=== PATIENT | male | born 1990 | race African-American/Black ===

== ENCOUNTER 2017-08-07 22:04 | Emergency (ER) | payer SELFPAY ==
[2017-08-07 22:25] VITALS: BP 163/86; PULSE 89; TEMP 99.9; BMI 27.6
--- NOTE | 2017-08-07 22:41 | PDOC ---
History of Present Illness - General History Source: Patient Exam Limitations: No Limitations - History of Present Illness Initial Comments: 08/07/17 23:09 The patient is a 26 year old female with no significant PMH who presents to the emergency department with flu-like symptoms including vomiting, fever (T. max 99F), and diarrhea beginning approximately this morning. The patient reports about 4 episodes of diarrhea and 2 episodes of vomiting with bloody streaks since this morning. He notes associated diffuse abdominal pain and body aches with his vomiting and diarrhea. The patient also notes he had a cough last week but denies cough at presentation. The patient denies chest pain, shortness of breath, headache and dizziness. Denies dysuria, frequency, urgency and hematuria. Allergies: NKA Past surgical history: None reported. Social history: Marijuana use. No reported cigarette or alcohol use. PCP: None reported. <Broderick Mensah - Last Filed: 08/07/17 23:09> <Estrella Nesbitt - Last Filed: 08/08/17 00:44> - General Chief Complaint: Diarrhea Stated Complaint: FATIGUE Time Seen by Provider: 08/07/17 22:41 Past History <Broderick Mensah - Last Filed: 08/07/17 23:09> - Suicide/Smoking/Psychosocial Hx Smoking History: Never smoked Number of Cigarettes Smoked Daily: 3 Hx Alcohol Use: No Drug/Substance Use Hx: Yes (MARIJUANA) Substance Use Type: Marijuana <Estrella Nesbitt - Last Filed: 08/08/17 00:44> - Past Medical History Allergies/Adverse Reactions: Allergies Allergy/AdvReac Type Severity Reaction Status Date / Time No Known Allergies Allergy Verified 08/07/17 23:45 Home Medications: Ambulatory Orders Ondansetron [Zofran Odt -] 4 mg SL TID PRN #6 od.tablet 08/08/17 Review of Systems - Review of Systems Able to Perform ROS?: Yes Comments:: 08/07/17 23:09 GENERAL/CONSTITUTIONAL: (+) Fever. (+) Body aches. No chills. No weakness. HEAD, EYES, EARS, NOSE AND THROAT: No change in vision. No ear pain or discharge. No sore throat. CARDIOVASCULAR: No chest pain or shortness of breath. RESPIRATORY: No cough, wheezing, or hemoptysis. GASTROINTESTINAL: (+) Diffuse abdominal pain. (+) Vomiting. (+) Diarrhea, No constipation. GENITOURINARY: No dysuria, frequency, or change in urination. MUSCULOSKELETAL: No joint or muscle swelling or pain. No neck or back pain. SKIN: No rash NEUROLOGIC: No headache, vertigo, loss of consciousness, or change in strength/ sensation. ENDOCRINE: No increased thirst. No abnormal weight change. HEMATOLOGIC/LYMPHATIC: No anemia, easy bleeding, or history of blood clots. ALLERGIC/IMMUNOLOGIC: No hives or skin allergy. <Broderick Mensah - Last Filed: 08/07/17 23:09> *Physical Exam - Vital Signs Last Vital Signs Temp Pulse Resp BP Pulse Ox 99.9 F H 89 20 163/86 97 08/07/17 22:21 08/07/17 22:21 08/07/17 22:21 08/07/17 22:21 08/07/17 22:21 - Physical Exam Comments: 08/07/17 23:09 GENERAL: Awake, alert, and fully oriented, in no acute distress HEAD: No signs of trauma EYES: PERRLA, EOMI, sclera anicteric, conjunctiva clear ENT: Auricles normal inspection, hearing grossly normal, nares patent, oropharynx clear without exudates. Moist mucosa NECK: Normal ROM, supple, no lymphadenopathy, JVD, or masses LUNGS: Breath sounds equal, clear to auscultation bilaterally. No wheezes, and no crackles HEART: Regular rate and rhythm, normal S1 and S2, no murmurs, rubs or gallops ABDOMEN: (+) Mild diffuse tenderness to deep palpation. Soft, normoactive bowel sounds. No guarding, no rebound. No masses. EXTREMITIES: Normal range of motion, no edema. No clubbing or cyanosis. No cords, erythema, or tenderness NEUROLOGICAL: Cranial nerves II through XII grossly intact. Normal speech, normal gait SKIN: Warm, Dry, normal turgor, no rashes or lesions noted. <Broderick Mensah - Last Filed: 08/07/17 23:09> - Vital Signs Last Vital Signs Temp Pulse Resp BP Pulse Ox 99.9 F H 89 20 163/86 97 08/07/17 22:21 08/07/17 22:21 08/07/17 22:21 08/07/17 22:21 08/07/17 22:21 <Estrella Nesbitt - Last Filed: 08/08/17 00:44> ED Treatment Course - LABORATORY CBC & Chemistry Diagram: 08/07/17 23:17 08/07/17 23:17 <Estrella Nesbitt - Last Filed: 08/08/17 00:44> Medical Decision Making - Medical Decision Making 08/07/17 22:53 Pt presents to the ED complaining of a one day history of fever, nausea and blood streaked emesis and diarrhea. Also complains of generalized myalgias. Differential includes viral gastroenteritis, influenza, less likely biliary disease or obstruction. Will give IV hydration and nausea control, check labs and reassess. 08/08/17 00:40 Patient feels improved after IVF and nausea control. Now is tolerating PO. Will discharge home with zofran odt as needed. <Estrella Nesbitt - Last Filed: 08/08/17 00:44> *DC/Admit/Observation/Transfer - Attestations Scribe Attestion: 08/07/17 23:09 Documentation prepared by Broderick Mensah, acting as bilingual medical receptionist for Estrella Nesbitt MD. <Broderick Mensah - Last Filed: 08/07/17 23:09> - Discharge Dispostion Admit: No <Estrella Nesbitt - Last Filed: 08/08/17 00:44> Diagnosis at time of Disposition: Nausea and vomiting Qualifiers: Vomiting type: unspecified Vomiting Intractability: non-intractable Qualified Code(s): R11.2 - Nausea with vomiting, unspecified - Discharge Dispostion Disposition: HOME Condition at time of disposition: Good - Patient Instructions Printed Discharge Instructions: DI for Vomiting -- Adult Additional Instructions: return to the ED for severe abdominal pain, persistent vomiting not resolved with zofran, bloody vomit or diarrhea, other new or worsening symptoms.
[2017-08-07] MEDS ORDERED: SODIUM CHLORIDE 1,000 ML IV STA (22:48)
[2017-08-07] MEDS ORDERED: ONDANSETRON 4 MG/2 ML VIAL IVPUSH ONE (22:48)
[2017-08-07] MEDS ORDERED: ONDANSETRON 4 MG/2 ML VIAL ONE (22:53)
[2017-08-07 23:24] LABS: BASO % 0.3 % (0-2.0); EOS % 0.5 % (0-4.5); HEMATOCRIT 41.3 % (35.4-49); HEMOGLOBIN 13.6 GM/dL (11.7-16.9); LYMPH % 4.5 % (8-40); MCH 26.9 pg (25.7-33.7); MCHC 32.8 g/dl (32.0-35.9); MEAN CELL VOLUME 81.8 fl (80-96); MEAN PLT VOLUME 9.1 fl (7.5-11.1); NEUT % 89.7 % (42.8-82.8); PLATELET COUNT 189 K/MM3 (134-434); RBC 5.05 M/mm3 (4.00-5.60); RDW 13.5 % (11.9-15.9); WHITE BLOOD COUNT 12.3 K/mm3 (4.0-10.0)
[2017-08-07 23:56] LABS: ALBUMIN 4.3 g/dl (3.4-5.0); ANION GAP 8 (8-16); BLOOD UREA NITROGEN 14 mg/dL (7-18); CALCIUM 9.2 mg/dL (8.5-10.1); CHLORIDE 104 mmol/L (98-107); CO2 26 mmol/L (21-32); GLUCOSE,RANDOM 94 mg/dL (74-106); POTASSIUM 4.1 mmol/L (3.5-5.1); SGOT/AST 21 U/L (15-37); SGPT/ALT 33 U/L (12-78); SODIUM 138 mmol/L (136-145)
[2017-08-07 23:57] LABS: ALK PHOS 73 U/L (45-117); BILIRUBIN,TOTAL 0.6 mg/dL (0.2-1.0); TOT PROT 7.6 g/dl (6.4-8.2)
== END 2017-08-08 01:07 | disposition home or self-care (01) ==
LOC: JER 22:04
PROC: 3E033GC Introduction of Other Therapeutic Substance into Peripheral Vein, Percutaneous Approach (ICD-10-PCS; principal; 2017-08-07)
DX: R11.2 Nausea with vomiting, unspecified (principal)
CPT/HCPCS: 36415; 80053; 85025; 87804; 99282-25